=== PATIENT | female | born 1980 | race African-American/Black ===

== ENCOUNTER 2018-08-30 23:34 | Emergency (ER) | payer BC ==
[2018-08-30] MEDS ORDERED: Bupivacaine PF 0.5% 30 ML VIAL ONE (23:57)
== END 2018-08-31 00:21 | disposition home or self-care (01) ==
LOC: MADERS 23:34
DX: K04.7 Periapical abscess without sinus (principal); J45.909 Unspecified asthma, uncomplicated; F17.210 Nicotine dependence, cigarettes, uncomplicated; Z79.899 Other long term (current) drug therapy
CPT/HCPCS: 64400; S0020